=== PATIENT | male | born 1950 | race Caucasian/White ===

== ENCOUNTER → 2022-03-25 | Outpatient (CLI) | payer BC ==
[2022-03-25 12:20] LABS: HEMOGLOBIN 16.7 gm/dl (14.0-17.5); RED BLOOD COUNT 5.57 M/UL (4.20-5.50); WHITE BLOOD COUNT 5.2 K/UL (4.5-11.0)
[2022-03-25 12:41] LABS: BUN/CREATININE RATIO 23 (0-10)
[2022-03-26 09:27] LABS: VITAMIN D, 25-HYDROXY 33.3 ng/mL (30.0-100.0)
[2022-03-26 09:39] LABS: THYROXINE (T4) 8.1 ug/dL (4.5-12.0)
== END ==
LOC: LAB 11:15
PROVIDERS: Nurse Practitioner
DX: Z12.5 Encounter for screening for malignant neoplasm of prostate (principal); E55.9 Vitamin D deficiency, unspecified; E78.5 Hyperlipidemia, unspecified; E11.9 Type 2 diabetes mellitus without complications; R53.83 Other fatigue
CPT/HCPCS: 36415; 80053; 80061; 81001; 83036; 84153; 84436; 84443; 84480; 85025